=== PATIENT | male | born 1945 | race Caucasian/White ===

== ENCOUNTER → 2017-12-26 | Outpatient (CLI) | payer OTHER, MEDICARE ==
[~2017-12-26] MED LIST: GADOBUTROL 10 ML VIAL IVP ONE
== END ==
LOC: FIMAGING 13:29
DX: N42.9 Disorder of prostate, unspecified (principal); Z80.42 Family history of malignant neoplasm of prostate
CPT/HCPCS: 72197; 76377; A9585; 82565-PO